=== PATIENT | female | born 1980 | race Two or more races ===

== ENCOUNTER 2016-10-18 16:06 | Inpatient (IN) | payer SELFPAY ==
[~2016-10-18] VITALS: Ht 162.6 cm; Wt 81.0 kg
[2016-10-18] MEDS ORDERED: ONDANSETRON 2MG/ML, 2ML ONE (16:53)
[2016-10-18] MEDS ORDERED: SODIUM CHLORIDE 0.9% 1,000ML IVBOLUS ONE (17:00)
[2016-10-18] MEDS ORDERED: SODIUM CHLORIDE FLUSH 10ML SYR IVF ONE (17:00)
[2016-10-18] MEDS ORDERED: ONDANSETRON 2MG/ML, 2ML IVPush ONE (17:00)
[2016-10-18 17:08] LABS: BLOOD UREA NITROGEN 30 mg/dL (7-18)
[2016-10-18 17:14] LABS: ASPARTATE AMINO TRANSFERASE 14 U/L (15-37)
[2016-10-18] MEDS ORDERED: SODIUM CHLORIDE 0.9% 1,000 ML IV ONE (17:44)
[2016-10-18] MEDS ORDERED: POTASSIUM CHLORIDE 20 MEQ TAB.ER.PRT ONE (17:49)
[2016-10-18] MEDS ORDERED: CEFTRIAXONE PMX 1GM/50ML 50 ML ONE (17:50)
[2016-10-18] MEDS ORDERED: OMNIPAQUE 350 MG/ML, 100ML BOTTLE ONE (17:55)
[2016-10-18] MEDS ORDERED: CEFTRIAXONE PMX 1GM/50ML 50 ML IV ONE (18:00)
[2016-10-18] MEDS ORDERED: POTASSIUM CHLORIDE 20 MEQ TAB.ER.PRT PO ONE (18:00)
[2016-10-18] MEDS ORDERED: LORazepam 2 MG/ML, 1ML ONE (19:24)
[2016-10-18] MEDS ORDERED: LORazepam 2 MG/ML, 1ML IVPush ONE (19:30)
[2016-10-18] MEDS ORDERED: POTASSIUM CHLORIDE 20 MEQ in SODIUM CHLORIDE 0.9% 250 ML IV ONE (20:00)
[2016-10-18] MEDS ORDERED: FENTANYL PF 250 MCG/5ML ONE (20:03)
[2016-10-18] MEDS ORDERED: MIDAZOLAM 1 MG/ML, 2ML ONE (20:03)
[2016-10-18] MEDS ORDERED: BUPIVACAINE/PF-EPI 0.5% 1:200K ONE (20:09)
[2016-10-18] MEDS ORDERED: PROPOFOL 10 MG/ML, 20ML ONE (20:14)
[2016-10-18] MEDS ORDERED: SUCCINYLCHOLINE 20 MG/ML, 10ML ONE (20:14)
[2016-10-18] MEDS ORDERED: DEXAMETHASONE 4 MG/ML, 1ML ONE (20:14)
[2016-10-18] MEDS ORDERED: ROCURONIUM 10 MG/ML ONE (20:14)
[2016-10-18] MEDS ORDERED: BUPIVACAINE/PF-EPI 0.5% 1:200K INFIL ONE (20:36)
[2016-10-18] MEDS ORDERED: PROMETHAZINE 25 MG/ML, 1ML IV PRN (21:00)
[2016-10-18] MEDS ORDERED: FENTANYL PF 100 MCG/2ML IV PRN (21:00)
[2016-10-18] MEDS ORDERED: ACETAMINOPHEN 325 MG TABLET PO PRN (21:00)
[2016-10-18] MEDS ORDERED: HYDROmorphone 1 MG/ML, 1ML ONE ×3 (21:41→22:15)
[2016-10-18] MEDS: HYDROmorphone 1 MG/ML, 1ML IV PRN ×6 (21:44→22:20)
[2016-10-18] MEDS ORDERED: PROMETHAZINE 25 MG/ML, 1ML IM PRN (23:30)
[2016-10-18] MEDS ORDERED: NS + 40MEQ KCL 1,000 ML IV SCH (23:30)
[2016-10-19 00:22] VITALS: BP 129/69
[2016-10-19] MEDS: morphine SULFATE 10 MG/ML, 1ML IV PRN ×2 (02:20→16:54)
[2016-10-19 03:12] VITALS: BP 118/76
[2016-10-19] MEDS ORDERED: NS + 40MEQ KCL 1,000 ML IV SCH ×2 (04:30→07:31)
[2016-10-19 05:22] LABS: BLOOD UREA NITROGEN 16 mg/dL (7-18)
[2016-10-19 07:31] VITALS: BP 105/71
[2016-10-19 13:53] VITALS: BP 109/72
[2016-10-19] MEDS ORDERED: SODIUM CHLORIDE 0.9% 1,000 ML IV ONE (17:44)
[2016-10-19 19:45] VITALS: BP 113/70
[2016-10-20 03:46] VITALS: BP 104/68
[2016-10-20] MEDS ORDERED: NS + 40MEQ KCL 1,000 ML IV SCH (07:14)
[2016-10-20 07:22] VITALS: BP 105/71
[2016-10-20] MEDS ORDERED: HYDROcodone/APAP 5/325 TABLET PO PRN (07:30)
[2016-10-20 13:41] VITALS: BP 103/70
[2016-10-20 19:56] VITALS: BP 109/68
[2016-10-21 02:50] VITALS: BP 110/69
[2016-10-21 07:15] VITALS: BP 112/77
[2016-10-21] MEDS ORDERED: HYDR-3138 PO (09:05)
== END 2016-10-21 10:15 | disposition home or self-care (01) | DRG 354 ==
LOC: ED 17:08 → EDIP 18:45 → 4NOR 22:33
PROVIDERS: ADMIT Surgery; ATTEND Surgery
PROC: 0WQF0ZZ Repair Abdominal Wall, Open Approach (ICD-10-PCS; principal; 2016-10-18 20:00)
DX: K43.0 Incisional hernia with obstruction, without gangrene (principal); E87.3 Alkalosis; K43.6 Other and unspecified ventral hernia with obstruction, without gangrene; E86.1 Hypovolemia; E87.6 Hypokalemia; E87.8 Other disorders of electrolyte and fluid balance, not elsewhere classified
CPT/HCPCS: 36415; 74177; 80048; 80053; 81001; 83690; 83735; 84703; 85025; 87086; 93005; 96374; 96375; J0696; J1100; J1170; J2250; J2405; J2704; J3010; J3480; Q9967; J0330; J2060; J2270; J7030; J7050